=== PATIENT | female | born 2005 | race Caucasian/White ===

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

== ENCOUNTER 2023-12-19 03:06 | Outpatient (CLI) | payer OTHER ==
[2023-12-19] MEDS: LACTATED RINGERS 1,000 ML IV ONE (03:43)
[2023-12-19 03:47] LABS: Appearance,Urine Clear (Clear); Bilirubin,Urine Negative (Negative); Blood,Urine Negative (Negative); Color,Urine Colorless; Glucose,Urine (UA) Negative (Negative); Ketones,Urine Negative (Negative); Leukocyte Esterase,Urine Negative (Negative); Nitrite,Urine Negative (Negative); PH, Urine 6.5 (5.0-8.0); Protein,Urine Negative (Negative); Specific Gravity,Urine 1.014 (1.001-1.035); Urobilinogen,Urine <2.0 mg/dL (<2.0)
[2023-12-19] MEDS: TERBUTALINE 1 MG/ML VIAL SQ STA ×3 (05:04→05:44)
[2023-12-19 06:51] VITALS: BP 118/65; PULSE 89; RESP 16; TEMP 97.9
--- NOTE | 2024-01-01 16:10 | P.MSEPDOC ---
Presenting Problems - Arrival Data Date of Arrival on Unit: 12/19/23 Time of Arrival on Unit: 03:06 Mode of Transport: Wheelchair - Complaint OB-Reason for Admission/Chief Complaint: Possible Onset of Labor Comment: Patient arrived from home stating that she is feeling contractions that started at 0130 am this morning Patient see Dr. Matias at [facility]. Patient denies any complications with this . Medical History - Information : 3 Para: 1 Term: 1 : 0 Abortions: Spontaneous or Elective: 1 Number of Living Children: 1 - Gestational Age Gestational Age by FORTINO (wks/days): 25 Weeks and 6 Days - History Comment: Patient denies complications with . Review of Systems - Review of Systems Constitutional: No problems Breast: No problems ENT: No problems Cardiovascular: No problems Respiratory: No problems Gastrointestinal: No problems Genitourinary: No problems Musculoskeletal: No problems Neurological: No problems Skin: No problems Vital Signs - Temperature Temperature: 97.9 F Temperature Source: Temporal Artery Scan - Pulse Pulse Oximetery Pulse Rate: 89 Pulse Assessment Method: Pulse Oximetry - Respirations Respiratory Rate: 16 Oxygen Delivery Method: Room Air O2 Sat by Pulse Oximetry: 97 - Blood Pressure Right Arm Blood Pressure: 118/65 Blood Pressure Mean: 82 Blood Pressure Source: Automatic Cuff Medical Screen Scoring - Cervical Exam Dilation (cm): 0 - Uterine Contractions Frequency From (mins): 2 Frequency To (mins): 3 Duration From (seconds): 40 Duration To (seconds): 60 Intensity: Mild Resting: Soft to palpation - Assessment - Baby A Baseline FHR: 140 Heart Rate - NICHD Category: Category I (Normal) NST: Reactive Physician Notification - Physician Notified Physician Notified Date: 12/19/23 Physician Notified Time: 03:38 Physician: Carlee Zimmerman Order Received: Yes - Notification Comment Comment: RN spoke with Dr. Zimmerman regarding patient hx, cat1 FHR. cont ractions, patient DOM, Dr. Zimmerman ordered urinalysis, IV start with LR bolus and check cervix. Dr. Zimmerman aware of urine labs, cervical check and contractions that are causing patient pain 5/10. Dr. Zimmerman ordered terbutaline if patient feels better she can go home. Maternal Triage Index - Prompt/Priority 3 Prompt Priority 3: Yes Criteria Met for Priority 3: Patient arrived from home stating that she is feeling contractions that started at 0130 am this morning Patient see Dr. Matias at [facility]. Patient denies any complications with this . Disposition - Disposition OB Disposition: Discharge to home Discharge Date: 12/19/23 Discharge Time: 06:06 I agree with the RN Medical Screening Exam: Yes Physician's MSE Comment: I have neither seen nor examined the patient Case reviewed; plan agreed upon as documented in EMR&OBIX.: Yes Diagnosis: MATERNAL CARE FOR PROBLEM, UNSP, SECOND * DO NOT USE *
== END 2023-12-19 06:04 | disposition home or self-care (01) ==
LOC: FBPOP 03:06
PROVIDERS: ATTEND Obstetrics & Gynecology
DX: O47.02 False labor before 37 completed weeks of gestation, second trimester (principal); Z3A.25 25 weeks gestation of pregnancy
CPT/HCPCS: 96360; 96361; 96372; 81003; G0463; J3105; 36415; 59025; 99214

== ENCOUNTER 2024-04-06 22:57 | Emergency (ER) | payer OTHER ==
[2024-04-06 23:08] VITALS: TEMP 98.4
--- NOTE | 2024-04-06 23:23 | ED ---
Female Urogenital HPI - General Chief complaint: Vaginal Bleeding Stated complaint: Vaginal Discharge - 15 days PP Time Seen by Provider: 04/06/24 23:12 Source: patient, RN notes reviewed Mode of arrival: ambulatory Limitations: no limitations - History of Present Illness Initial comments: This is a 18-year-old female who presents to the emergency department for pelvic pain and vaginal bleeding. Patient had a vaginal delivery 15 days ago at [facility]. Her CONTESTANT COORDINATOR is Dr. Godfrey. She had an uncomplicated and delivery. States that she has had occasional bleeding and discomfort since then. However, today, states that she was in the shower and noticed that it seemed like something started to come out of her vagina, almost like a blood clot. She tried to pull on this and states that it was painful but would not dislodge, prompting her to come to the emergency department. Reports associated pelvic pain/cramping and nausea as well. Denies any fevers/chills. MD Complaint: vaginal bleeding - Related Data Home Medications Medication Instructions Recorded Confirmed Vit No.179/Iron/Folic 1 tab PO DAILY 12/19/23 12/19/23 [ Tablet] Allergies Allergy/AdvReac Type Severity Reaction Status Date / Time No Known Allergies Allergy Verified 04/06/24 23:08 Review of Systems ROS Statement: Those systems with pertinent positive or pertinent negative responses have been documented in the HPI. ROS Other: All systems not noted in ROS Statement are negative. Past Medical History Past Medical History: No Reported History History of Any Multi-Drug Resistant Organisms: None Reported Past Surgical History: No Surgical Hx Reported Past Anesthesia/Blood Transfusion Reactions: No Reported Reaction Past Psychological History: No Psychological Hx Reported Smoking Status: Never smoker - Past Family History Mother Family Medical History: No Reported History Father Family Medical History: Diabetes Mellitus General Exam Limitations: no limitations General appearance: alert, in no apparent distress Head exam: Present: atraumatic, normocephalic, normal inspection Respiratory exam: Present: normal lung sounds bilaterally. Absent: respiratory distress, wheezes, rales, rhonchi, stridor Cardiovascular Exam: Present: regular rate, normal rhythm, normal heart sounds. Absent: systolic murmur, diastolic murmur, rubs, gallop, clicks GI/Abdominal exam: Present: soft, tenderness (Lower abdomen), normal bowel sounds. Absent: distended, guarding, rebound, rigid External exam: Present: other (Large blood clot extending from the endometrial cavity to outside of the vagina.) Neurological exam: Present: alert, oriented X3, CN II-XII intact Psychiatric exam: Present: normal affect, normal mood Skin exam: Present: warm, dry, intact, normal color. Absent: rash Course Vital Signs 04/06/24 04/07/24 04/07/24 23:04 00:23 01:55 Temperature 98.4 F Pulse Rate 95 72 65 Respiratory 22 18 18 Rate Blood Pressure 107/70 107/65 116/72 O2 Sat by Pulse 98 98 98 Oximetry 04/07/24 03:21 Temperature Pulse Rate 62 Respiratory 18 Rate Blood Pressure 110/71 O2 Sat by Pulse 99 Oximetry Medical Decision Making - Medical Decision Making This is a 18 year old female who presents to the emergency department for pelvic pain and vaginal bleeding. Was pt. sent in by a medical professional or institution? @ -No Did you speak to anyone other than the patient for history? @ -No Did you review nursing and triage notes? @ -Yes, and I agree, it is accurate with regards to the patient's symptoms. Were old charts reviewed? @ -No Differential Diagnosis? @ -Differential Vaginal Bleeding: Spontaneous , threatened , molar , ectopic , incompetent cervix, placenta previa, uterine rupture, dysfunctional uterine bleeding, hemorrhage, uterine fibroids, malignancy, coagulopathy, PID, cervicitis, adenomyosis, vaginal trauma, this is not meant to be an all- inclusive list. EKG interpreted by me (3pts min.)? @ -Not obtained X-rays interpreted by me (1pt min.)? @ -Not obtained CT interpreted by me (1pt min.)? @ -Not obtained U/S interpreted by me (1pt. min.)? @ -Transvaginal ultrasound obtained. My interpretation identifies tissue in the endometrial cavity. What testing was considered but not performed? (CT, X-rays, U/S, labs)? Why? @ -None What meds were considered but not given? Why? @ -None Did you discuss the management of the patient with other professionals? @ -Yes, Dr. Gonzalez, CONTESTANT COORDINATOR. He advised that she likely passed any residual tissue based on the large blood clot that came out. She can be discharged home to follow-up outpatient. Did you reconcile home meds? @ -No Was smoking cessation discussed for >3mins.? @ -No Was critical care preformed (if so, how long)? @ -No Were there social determinants of health that impacted care today? How? (Homelessness, low income, unemployed, alcoholism, drug addiction, transportation, low edu. Level, literacy, decrease access to med. care, residential, rehab)? @ -No Was there de-escalation of care discussed even if they declined? (Discuss DNR or withdrawal of care, Hospice)? @ -No What co-morbidities impacted this encounter? (DM, HTN, Smoking, COPD, CAD, Cancer, CVA, Hep., AIDS, mental health diagnosis, sleep apnea, morbid obesity)? @ -None Was patient admitted / discharged? @ -Discharged. Lab work unremarkable. Hemoglobin within normal limits. Transvaginal ultrasound obtained demonstrating a thickened endometrial cavity up to 3.2 cm filled with heterogeneous material consistent with thrombus. On exam patient had a large clot extending from the endometrial cavity to outside of the vagina. Sterile plastic forceps were used and the clot was removed in its entirety. She did not have any substantial bleeding afterwards. The tissue removed was largely blood clot, however there was some discoloration that may have represented placental tissue. Case discussed with Dr. Gonzalez, CONTESTANT COORDINATOR, d ue to concern for retained products of conception. He advised that because she is hemodynamically stable and her hemoglobin is within normal limits, there is no intervention indicated at this point. He also advised that she likely passed any residual tissue based on the large clot that was removed and neither misoprostol or antibiotics are indicated at this point. He recommended she follow-up with her CONTESTANT COORDINATOR on an outpatient basis and continue monitoring her symptoms. This was discussed with the patient and her mother who are understanding and in agreement with this plan. She was given very strict return parameters including but not limited to worsening bleeding, pain, or fevers. She expresses understanding in this regard. The large blood clot was sent to the lab for pathology review to evaluate for any placental tissue. Patient discharged home in stable condition. Case discussed with ED attending Dr. Fay. Return precautions reviewed in depth, the patient is instructed to return to the emergency department with any new, worsening, or concerning symptoms. Patient verbalized understanding. Undiagnosed new problem with uncertain prognosis? @ -None Drug Therapy requiring intensive monitoring for toxicity (Heparin, Nitro, Insulin, Cardizem)? @ -None Were any procedures done? @ -None Diagnosis/symptom? @ - bleeding Acute, or Chronic, or Acute on Chronic? @ -Acute Uncomplicated (without systemic symptoms) or Complicated (systemic symptoms)? @ -Uncomplicated Side effects of treatment? @ -None Exacerbation, Progression, or Severe Exacerbation] @ -Not applicable Poses a threat to life or bodily function? @ -Unlikely - Lab Data Result diagrams: 04/06/24 23:16 04/06/24 23:16 Lab Results 04/06/24 04/06/24 04/06/24 Range/Units 23:16 23:16 23:16 WBC 8.8 (4.0-11.0) k/uL RBC 4.41 (3.80-5.40) m/uL Hgb 11.4 (11.4-16.0) gm/dL Hct 35.0 (34.0-46.0) % MCV 79.3 L (80.0-100.0) fL MCH 25.8 (25.0-35.0) pg MCHC 32.5 (31.0-37.0) g/dL RDW 15.2 (11.5-15.5) % Plt Count 283 (150-450) k/uL MPV 8.2 Neutrophils % 58 % Lymphocytes % 34 % Monocytes % 4 % Eosinophils % 2 % Basophils % 0 % Neutrophils # 5.1 (1.3-7.7) k/uL Lymphocytes # 3.0 (1.0-4.8) k/uL Monocytes # 0.3 (0-1.0) k/uL Eosinophils # 0.2 (0-0.7) k/uL Basophils # 0.0 (0-0.2) k/uL Hypochromasia Slight PT (10.0-12.5) sec INR (<1.2) APTT (22.0-30.0) sec Sodium 141 (137-145) mmol/L Potassium 3.7 (3.5-5.1) mmol/L Chloride 110 H (98-107) mmol/L Carbon Dioxide 26 (22-30) mmol/L Anion Gap 5 mmol/L BUN 11 (7-17) mg/dL Creatinine 0.75 (0.52-1.04) mg/dL Est GFR (CKD-EPI)AfAm >90 (>60 ml/min/1.73 sqM) Est GFR (CKD-EPI)NonAf >90 (>60 ml/min/1.73 sqM) Glucose 88 (74-99) mg/dL Plasma Lactic Acid Noman 0.7 (0.7-2.0) mmol/L Calcium 9.2 (8.4-10.2) mg/dL Total Bilirubin 0.4 (0.2-1.3) mg/dL AST 56 H (14-36) U/L ALT 56 H (4-34) U/L Alkaline Phosphatase 116 (38-126) U/L Total Protein 7.1 (6.3-8.2) g/dL Albumin 4.1 (3.5-5.0) g/dL HCG, Quant 5.0 mIU/mL 04/06/24 Range/Units 23:25 WBC (4.0-11.0) k/uL RBC (3.80-5.40) m/uL Hgb (11.4-16.0) gm/dL Hct (34.0-46.0) % MCV (80.0-100.0) fL MCH (25.0-35.0) pg MCHC (31.0-37.0) g/dL RDW (11.5-15.5) % Plt Count (150-450) k/uL MPV Neutrophils % % Lymphocytes % % Monocytes % % Eosinophils % % Basophils % % Neutrophils # (1.3-7.7) k/uL Lymphocytes # (1.0-4.8) k/uL Monocytes # (0-1.0) k/uL Eosinophils # (0-0.7) k/uL Basophils # (0-0.2) k/uL Hypochromasia PT 10.7 (10.0-12.5) sec INR 1.0 (<1.2) APTT 22.5 (22.0-30.0) sec Sodium (137-145) mmol/L Potassium (3.5-5.1) mmol/L Chloride (98-107) mmol/L Carbon Dioxide (22-30) mmol/L Anion Gap mmol/L BUN (7-17) mg/dL Creatinine (0.52-1.04) mg/dL Est GFR (CKD-EPI)AfAm (>60 ml/min/1.73 sqM) Est GFR (CKD-EPI)NonAf (>60 ml/min/1.73 sqM) Glucose (74-99) mg/dL Plasma Lactic Acid Noman (0.7-2.0) mmol/L Calcium (8.4-10.2) mg/dL Total Bilirubin (0.2-1.3) mg/dL AST (14-36) U/L ALT (4-34) U/L Alkaline Phosphatase (38-126) U/L Total Protein (6.3-8.2) g/dL Albumin (3.5-5.0) g/dL HCG, Quant mIU/mL - Radiology Data Radiology results: report reviewed, image reviewed Disposition Clinical Impression: bleeding Disposition: HOME SELF-CARE Instructions (If sedation given, give patient instructions): Bleeding (ED) Additional Instructions: Return to the emergency department with any new, worsening, or concerning symptoms. Contact your CONTESTANT COORDINATOR office on Monday morning and let them know that you were seen in the emergency department and had a large clot removed that may have contained placental tissue. Alternate with ibuprofen and Tylenol as needed for pain relief. Is patient prescribed a controlled substance at d/c from ED?: No Referrals: None,Stated [Primary Care Provider] - 1-2 days Time of Disposition: 03:12
[2024-04-06] MEDS: KETOROLAC 15 MG/ML 1 ML VIAL IVP STA (23:36)
[2024-04-06] MEDS: ONDANSETRON 4 MG/2 ML VIAL IVP STA (23:36)
[2024-04-06] MEDS: SODIUM CHLORIDE 0.9% 1,000 ML IV STA (23:37)
[2024-04-06 23:39] LABS: Basophils % (A) 0 %; Eosinophils # (A) 0.2 k/uL (0-0.7); Eosinophils % (A) 2 %; HGB 11.4 gm/dL (11.4-16.0); Hypochromasia Slight; Lymphocytes % (A) 34 %; MCH 25.8 pg (25.0-35.0); MCHC 32.5 g/dL (31.0-37.0); MCV 79.3 fL (80.0-100.0); Mean Platelet Volume 8.2; Monocytes # (A) 0.3 k/uL (0-1.0); Monocytes % (A) 4 %; Neutrophils # (A) 5.1 k/uL (1.3-7.7); Neutrophils % (A) 58 %; Platelet Count 283 k/uL (150-450); RBC 4.41 m/uL (3.80-5.40); RDW 15.2 % (11.5-15.5); WBC 8.8 k/uL (4.0-11.0)
[2024-04-06 23:48] LABS: Partial Thromboplastin Time 22.5 sec (22.0-30.0); Prothrombin Time 10.7 sec (10.0-12.5)
[2024-04-06 23:51] LABS: ALT 56 U/L (4-34); AST 56 U/L (14-36); African American GFR (CKD) >90 (>60 ml/min/1.73 sqM); Albumin 4.1 g/dL (3.5-5.0); Alkaline Phosphatase 116 U/L (38-126); Anion Gap 5 mmol/L; Blood Urea Nitrogen 11 mg/dL (7-17); Calcium 9.2 mg/dL (8.4-10.2); Carbon Dioxide 26 mmol/L (22-30); Chloride 110 mmol/L (98-107); Glucose 88 mg/dL (74-99); Non-African American GFR(CKD) >90 (>60 ml/min/1.73 sqM); Potassium 3.7 mmol/L (3.5-5.1); Sodium 141 mmol/L (137-145); Total Bilirubin 0.4 mg/dL (0.2-1.3); Total Protein 7.1 g/dL (6.3-8.2)
[2024-04-07 00:24] VITALS: RESP 18
--- NOTE | 2024-04-07 01:38 | US ---
EXAM: US Pelvis Transabdominal, Complete CLINICAL HISTORY: US Reason: Post pelvic pain and bleeding TECHNIQUE: Real-time complete transabdominal pelvic ultrasound with image documentation. COMPARISON: No relevant prior studies available. FINDINGS: Uterus/cervix: The uterus measures 11.4 x 7.6 x 7.9 cm, 354 mL and is anteverted. . No myometrial mass. The endometrial cavity is thickened to 3.2 cm and filled with heterogenous material consistent with thrombus. No abnormal Doppler blood flow is seen. Right ovary: The right ovary measures 3.1 x 1.8 x 1.8 cm, 5.4 mL with normal appearance. Normal blood flow. Left ovary: The left ovary measures 2.6 x 1 x 1.7 cm, 2.3 mL with normal appearance. Normal blood flow. Free fluid: No free fluid is seen in the pelvis. Bladder: Unremarkable as visualized. Wall is normal thickness for degree of distention. IMPRESSION: The endometrial cavity is thickened to 3.2 cm and filled with heterogenous material consistent with thrombus. No abnormal Doppler blood flow is seen.
[2024-04-07 03:23] VITALS: BP 110/71; PULSE 62
[2024-04-07] MEDS: ONDANSETRON 4 MG ODT STARTER PACK 2 TAB BTL PO STA (03:29)
== END 2024-04-07 03:30 | disposition home or self-care (01) ==
LOC: EC 22:57
DX: O72.2 Delayed and secondary postpartum hemorrhage (principal)
CPT/HCPCS: 36415; 76856; 80053; 83605; 84702; 85025; 85610; 85730; 88305; 96361; 96374; 96375; 99284

== ENCOUNTER 2024-04-09 17:07 | Emergency (ER) | payer OTHER ==
[2024-04-09 17:15] VITALS: RESP 18
--- NOTE | 2024-04-09 17:57 | ED ---
Recheck HPI - General Chief Complaint: Vaginal Bleeding Stated Complaint: vaginal bleeding Time Seen by Provider: 04/09/24 17:41 Source: patient, RN notes reviewed, old records reviewed Mode of arrival: ambulatory Limitations: no limitations - History of Present Illness Initial Comments: This is a 18-year-old female to ER with positive . Patient presents today for evaluation of vaginal bleeding after with recent ultrasound and vaginal exam here in the ER still passing a little small clot concern with clot passing but no symptoms otherwise no pain no nausea vomiting diarrhea fevers chest pain or shortness of breath no signs and symptoms of near syncope MD Complaint: other (Persistent vaginal bleeding) Symptoms Since Prior Visit: no new symptoms Associated Symptoms: none Treatments Prior to Arrival: other (0) - Related Data Home Medications Medication Instructions Recorded Confirmed Vit No.179/Iron/Folic 1 tab PO DAILY 12/19/23 12/19/23 [ Tablet] Allergies Allergy/AdvReac Type Severity Reaction Status Date / Time No Known Allergies Allergy Verified 04/09/24 17:15 Review of Systems ROS Statement: Those systems with pertinent positive or pertinent negative responses have been documented in the HPI. ROS Other: All systems not noted in ROS Statement are negative. Past Medical History Past Medical History: No Reported History Additional Past Medical History / Comment(s): pre eclampsia History of Any Multi-Drug Resistant Organisms: None Reported Past Surgical History: No Surgical Hx Reported Past Anesthesia/Blood Transfusion Reactions: No Reported Reaction Past Psychological History: No Psychological Hx Reported Smoking Status: Never smoker Past Alcohol Use History: None Reported Past Drug Use History: None Reported - Past Family History Mother Family Medical History: No Reported History Father Family Medical History: Diabetes Mellitus General Exam Limitations: no limitations General appearance: alert, in no apparent distress Head exam: Present: atraumatic, normocephalic, normal inspection Eye exam: Present: normal appearance, PERRL, EOMI. Absent: scleral icterus, conjunctival injection, periorbital swelling ENT exam: Present: normal exam, mucous membranes moist Neck exam: Present: normal inspection. Absent: tenderness, meningismus, lymphadenopathy Respiratory exam: Present: normal lung sounds bilaterally. Absent: respiratory distress, wheezes, rales, rhonchi, stridor Cardiovascular Exam: Present: regular rate, normal rhythm, normal heart sounds. Absent: systolic murmur, diastolic murmur, rubs, gallop, clicks GI/Abdominal exam: Present: soft, normal bowel sounds. Absent: distended, tenderness, guarding, rebound, rigid Extremities exam: Present: normal inspection, full ROM, normal capillary refill. Absent: tenderness, pedal edema, joint swelling, calf tenderness Back exam: Present: normal inspection Neurological exam: Present: alert, oriented X3, CN II-XII intact Psychiatric exam: Present: normal affect, normal mood Skin exam: Present: warm, dry, intact, normal color. Absent: rash Course Vital Signs 04/09/24 04/09/24 17:10 21:03 Temperature 98.6 F 98.7 F Pulse Rate 77 75 Respiratory 18 18 Rate Blood Pressure 97/68 121/79 O2 Sat by Pulse 98 98 Oximetry - Reevaluation(s) Reevaluation #1: 04/09/24 17:56 Medical records reviewed Reevaluation #2: 04/09/24 17:56 Patient symptoms unchanged Reevaluation #3: 04/09/24 17:56 Patient informed of results and questions answered Reevaluation #4: Was pt. sent in by a medical professional or institution (, PA, TEST TUBE MAKER, urgent care, hospital, or long term...) When possible be specific @ -no Did you speak to anyone other than the patient for history (EMS, parent, family, police, friend...)? What history was obtained from this source @ -no Did you review nursing and triage notes (agree or disagree)? Why? @ -agree Are old charts reviewed (outside hosp., previous admission, EMS record, old EKG, old radiological studies, urgent care reports/EKG's, long term records)? Report findings @ -yes Differential Diagnosis (chest pain, altered mental status, abdominal pain women, abdominal pain men, vaginal bleeding, weakness, fever, dyspnea, syncope, headache, dizziness, GI bleed, back pain, seizure, CVA, palpatations, mental health, musculoskeletal)? @ -prior EKG interpreted by me (3pts min.). @ -no X-rays interpreted by me (1pt min.). @ -no CT interpreted by me (1pt min.). @ -no U/S interpreted by me (1pt. min.). @ -Yes positive for vaginal bleeding after What testing was considered but not performed or refused? (CT, X-rays, U/S, labs)? Why? @ -none What meds were considered but not given or refused? Why? @ -none Did you discuss the management of the patient with other professionals (professionals i.e. , PA, TEST TUBE MAKER, lab, RT, psych nurse, dialysis social worker, beach lifeguard, teacher, field crop technical officer, case management social worker)? Give summary @ -no Was smoking cessation discussed for >3mins.? @ -no Was critical care preformed (if so, how long)? @ -no Were there social determinants of health that impacted care today? How? (Homelessness, low income, unemployed, alcoholism, drug addiction, transportation, low edu. Level, literacy, decrease access to med. care, skilled nursing, rehab)? @ -none Was there de-escalation of care discussed even if they declined (Discuss DNR or withdrawal of care, Hospice)? DNR status @ -no What co-morbidities impacted this encounter? (DM, HTN, Smoking, COPD, CAD, Cancer, CVA, ARF, Chemo, Hep., AIDS, mental health diagnosis, sleep apnea, morbid obesity)? @ -none Was patient admitted / discharged? Hospital course, mention meds given and rout e, prescriptions, significant lab abnormalities, going to OR and other pertinent info. @ - 18 female to ER with vaginal bleeding after . Patient reassured here in the ER and can be discharged home Discharge Undiagnosed new problem with uncertain prognosis? @ -no Drug Therapy requiring intensive monitoring for toxicity (Heparin, Nitro, Insulin, Cardizem)? @ -no Were any procedures done? @ -no Diagnosis/symptom? @ -Vaginal bleeding after probable retained products Acute, or Chronic, or Acute on Chronic? @ -Acute Uncomplicated (without systemic symptoms) or Complicated (systemic symptoms)? @ -Complicated Side effects of treatment? @ -no Exacerbation, Progression, or Severe Exacerbation? @ -exacerbation Poses a threat to life or bodily function? How? (Chest pain, [place], [place], pneumonia, PE, COPD, DKA, ARF, appy, cholecystitis, CVA, Diverticulitis, Homicidal, Suicidal, threat to staff... and all critical care pts) @ -yes Medical Decision Making - Medical Decision Making 18 female to ER with vaginal bleeding after . Patient reassured here in the ER and can be discharged home - Radiology Data Radiology results: report reviewed (Ultrasound pelvis positive for retained products), image reviewed Disposition Clinical Impression: bleeding Disposition: HOME SELF-CARE Condition: Fair Instructions (If sedation given, give patient instructions): Dysmenorrhea (ED) Is patient prescribed a controlled substance at d/c from ED?: No Referrals: None,Stated [Primary Care Provider] - 1-2 days Time of Disposition: 18:00
--- NOTE | 2024-04-09 19:57 | US ---
EXAMINATION TYPE: US pelvic complete DATE OF EXAM: 04/09/2024 COMPARISON: 04/06/2024 CLINICAL INDICATION: Female, 18 years old with history of retained POC; Patient states baseball size clots. 18 days with cramping. TV ultrasound not done due to patient stitches TECHNIQUE: Transabdominal (TA). Transabdominal grayscale, color Doppler and spectral Doppler sonogr aphic images of the pelvis were acquired. FINDINGS: EXAM MEASUREMENTS: Uterus: 9.7 x 5.7 x 7.8 cm Endometrial Stripe: 1.5 cm Right Ovary: 2.0 x 1.8 x 1.6 cm Left Ovary: Unable to visualize today due to overlying bowel gas TV not done due to patient stitches 1. Uterus: Anteverted wnl 2. Endometrium: The endometrium is thickened, hypoechoic, and heterogenous with no vascularity seen within. 3. Right Ovary: follicular changes, wnl 4. Left Ovary: Obscured by overlying bowel gas Spectral, color and waveform doppler imaging shows good arterial and venous flow within the rt ovar y ; there is no evidence for ovarian torsion. 5. Bilateral Adnexa: wnl 6. Posterior cul-de-sac: wnl IMPRESSION: Heterogenous endometrial canal with fluid and debris. Retained products of conception vivek uld be considered. [facility], , 04/09/2024 7:55 PM
[2024-04-09 21:08] VITALS: BP 121/79; PULSE 75; TEMP 98.7
== END 2024-04-09 21:07 | disposition home or self-care (01) ==
LOC: EC 17:07
DX: O72.1 Other immediate postpartum hemorrhage (principal)
CPT/HCPCS: 76856; 93976; 99284